=== PATIENT | female | born 1945 | race African-American/Black ===

== ENCOUNTER → 2017-04-21 | Outpatient (CLI) | payer OTHER ==
[~2017-04-21] MED LIST: ACTOPLUS MET X1 EACH OR; ACTOS 30 MG TAB30 MG PO; ASPIRIN EC81 M1 OR; BYSTOLIC10 MG OR; CADUET 10 MG-11 EACH OR; CHLORTHALIDONE25 MG OR; COUMADIN 4 MG TA4 M1 PO; DOCUSATE SODIU100 MG PO; GLIPIZIDE ER10 MG OR; GLUCOPHAGE XR500 MG PO; IRON OR; LIPITOR10 MG PO; MOBIC15 MG OR; NORCO 10-325 T1 EACH; PRILOSEC 20 MG20 MG OR; PRILOSEC 20 MG20 MG PO; SKELAXIN 800 M800 M1 OR; SYNTHROID100 MCG OR; THERA-M CAPLET1 EACH OR; VISTARIL 25 MG25 M1 PO; VITAMIN B SL; VITAMIN D35000 UNI1 OR
== END ==
LOC: RAD 01:11
DX: Z12.31 Encounter for screening mammogram for malignant neoplasm of breast (principal)

== ENCOUNTER → 2017-06-11 | Outpatient (CLI) | payer OTHER ==
[~2017-06-11] MED LIST changes: +NAPROXEN375 MG PO; +TRAMADOL 50 MG50 MG PO
== END ==
LOC: MRI 09:30
DX: M50.223 Other cervical disc displacement at C6-C7 level (principal); M54.12 Radiculopathy, cervical region; M25.78 Osteophyte, vertebrae; M47.892 Other spondylosis, cervical region; M51.24 Other intervertebral disc displacement, thoracic region

== ENCOUNTER 2018-02-14 10:49 | Emergency (ER) | payer OTHER ==
[~2018-02-14] VITALS: Ht 175.3 cm; Wt 93.0 kg
[~2018-02-14 10:49] MED LIST changes: -NAPROXEN375 MG PO; -TRAMADOL 50 MG50 MG PO
[2018-02-14] MEDS ORDERED: NAPROXEN375 MG PO ×2 (13:10→14:11)
[2018-02-14] MEDS ORDERED: TRAMADOL 50 MG50 MG PO ×2 (13:10→14:11)
[2018-02-14 14:14] VITALS: BP 135/68
== END 2018-02-14 14:16 | disposition home or self-care (01) ==
LOC: ER 10:49
DX: S50.312A Abrasion of left elbow, initial encounter (principal); G89.29 Other chronic pain; M17.12 Unilateral primary osteoarthritis, left knee; R07.89 Other chest pain; E11.9 Type 2 diabetes mellitus without complications; I10 Essential (primary) hypertension; K21.9 Gastro-esophageal reflux disease without esophagitis; E03.9 Hypothyroidism, unspecified; Z90.49 Acquired absence of other specified parts of digestive tract; Z79.899 Other long term (current) drug therapy; Z88.8 Allergy status to other drugs, medicaments and biological substances; W17.89XA Other fall from one level to another, initial encounter; Y93.89 Activity, other specified; Y92.89 Other specified places as the place of occurrence of the external cause; Y99.8 Other external cause status

== ENCOUNTER → 2018-03-18 | Outpatient (CLI) | payer OTHER ==
[~2018-03-18] MED LIST changes: +NAPROXEN375 MG PO; +TRAMADOL 50 MG50 MG PO
== END ==
LOC: RAD 11:57
DX: S46.212A Strain of muscle, fascia and tendon of other parts of biceps, left arm, initial encounter (principal); M75.82 Other shoulder lesions, left shoulder; M19.012 Primary osteoarthritis, left shoulder; X58.XXXA Exposure to other specified factors, initial encounter; Y93.89 Activity, other specified; Y92.89 Other specified places as the place of occurrence of the external cause; Y99.8 Other external cause status

== ENCOUNTER → 2018-05-13 | Outpatient (CLI) | payer OTHER | LOC: RAD 03:21 | DX: Z12.31 Encounter for screening mammogram for malignant neoplasm of breast (principal) ==

== ENCOUNTER → 2019-06-08 | Outpatient (CLI) | payer OTHER | LOC: BC 05-26 16:50 | DX: Z12.31 Encounter for screening mammogram for malignant neoplasm of breast (principal) ==

== ENCOUNTER → 2020-06-13 | Outpatient (CLI) | payer OTHER | LOC: BC 10:53 | PROVIDERS: ATTEND Family Medicine | DX: Z12.31 Encounter for screening mammogram for malignant neoplasm of breast (principal) ==